=== PATIENT | male | born 1990 | race Caucasian/White ===

== ENCOUNTER → 2020-06-23 | Outpatient (CLI) | payer BC ==
--- NOTE | 2020-06-23 15:35 | RAD ---
PROCEDURE: ABDOMEN SUPINE UPRIGHT CLINICAL INDICATION / HISTORY: Reason: ABD PAIN AND BLOATING / Spl. Instructions: / History: . TECHNIQUE: Supine and upright AP images of the abdomen was obtained. COMPARISON: None FINDINGS: The lung bases are not included. A nonspecific bowel gas pattern is present. No overt findings of bowel obstruction shown. No organomegaly or pathologic calcifications are identified. No acute osseous abnormality. IMPRESSION: No acute abdominal process. Electronically signed by: Mariaelena Perales MD (06/23/2020 3:32 PM) [id number]
== END | disposition home or self-care (01) ==
LOC: PMG 10:37
DX: R10.13 Epigastric pain (principal)
CPT/HCPCS: 74019